=== PATIENT | female | born 1960 | race Caucasian/White ===

== ENCOUNTER → 2016-09-10 16:53 | Outpatient (CLI) | payer MEDICAID | END | disposition home or self-care (01) | LOC: D.MAMMO 11:00 | DX: Z12.31 Encounter for screening mammogram for malignant neoplasm of breast (principal) ==

== ENCOUNTER → 2019-01-04 08:55 | Outpatient (CLI) | payer SELFPAY ==
--- NOTE | ~2019-01-04 | EC ---
PATIENT:BABAK PELAYO DATE OF SERVICE: 01/04/19 SEX: F MEDICAL RECORD: [id number] DATE OF : 62 LOCATION:[facility] AGE OF PATIENT: 58 ADMISSION DATE: 01/04/19 REFERRING PHYSICIAN: INTERPRETING PHYSICIAN: MART ALDANA MD ECHOCARDIOGRAM REPORT ECHO CHARGES 4 ECHO COMPLETE Date: 01/03/19 CLINICAL DIAGNOSIS: DYSPNEA ECHOCARDIOGRAPHIC MEASUREMENTS (adult normal given) AC root (d.<3.7cm) 2.3 cm LV Septum d (<1.2 cm> 1.2 cm Valve Excursion 1.4 cm LV Septum (systole) 1.3 cm Left Atria (s.<4.0cm> 3.5 cm LVPW d(<1.2cm) 1.1 cm RV (d.<2.3cm) 2.3 cm LVPW (sytole) 1.2 cm LV diastole(<5.6CM) 4.0 cm MV E-F(>70mm/sec) cm LV systole 3.3 cm LVOT Diameter 1.7 cm MV exc.(>10mm) cm Est.ejection fraction (50-75%) % DOPPLER: LVIT cm/sec A 70 cm/sec E 77 cm/sec LA cm/sec RVSP 33.8 mmHg LVOT 85 cm/sec AOP1/2T m/s Asc. Ao 127 cm/sec RVOT 67 cm/sec RA cm/sec PA 85 cm/sec AV Gradient Peak 6.4 mmHg AV Mean 2.7 mmHg AV Area 1.7 cm MV Gradient Peak 4.0 mmHg MV Mean 1.4 mmHg MV Area cm COMMENTS: Distribution Superintendent: Briana BROOKS Reed Cleaner: Dot Buitrago TAPE# PACS Pericardial Effusion N DATE OF SERVICE: FINDINGS: 1. Left ventricular chamber size is within normal limits. Left ventricular systolic function is normal. Overall ejection fraction estimated at 60%. 2. Left atrium, right atrium, right ventricular chamber size are within normal limits. 3. Valvular structures have normal structure and motion. 4. Doppler interrogation reveals mild tricuspid regurgitation, no other valvular insufficiency or stenosis. Pulmonary systolic pressure is estimated 34 ECHOCARDIOGRAM REPORT [id number] BABAK PELAYO mmHg. 5. No evidence of pericardial effusion or left ventricular thrombus. TRANSINT:[id number] Voice Confirmation ID: [id number] DOCUMENT ID: [id number] MART ALDANA MD CC: [id number] DICTATION DATE: 01/04/19 1748 INSTRUMENT ADJUSTER: 01/04/192016 DEP CLI 01/04/19 [place] [id number]
== END | disposition home or self-care (01) ==
LOC: D.ECHO 08:55 → D.RT 16:00
PROVIDERS: ATTEND Family Medicine
DX: R06.02 Shortness of breath (principal)

== ENCOUNTER → 2019-11-16 07:50 | Outpatient (CLI) | payer MEDICAID | END | disposition home or self-care (01) | LOC: D.MRI 07:50 | PROVIDERS: ATTEND Registered Nurse Emergency | DX: M25.512 Pain in left shoulder (principal); Z84.89 Family history of other specified conditions ==